=== PATIENT | female | born 1955 | race Two or more races ===

== ENCOUNTER 2018-10-04 07:49 | Outpatient (CLI) | payer OTHER | END 2018-10-04 08:01 | disposition home or self-care (01) | LOC: SONOGRAMA 07:49 | DX: B18.2 Chronic viral hepatitis C (principal); R10.84 Generalized abdominal pain ==

== ENCOUNTER 2018-10-23 10:21 | Outpatient (CLI) | payer OTHER | END 2018-10-23 17:00 | disposition home or self-care (01) | LOC: MAMO-SONO 10:21 | DX: Z12.31 Encounter for screening mammogram for malignant neoplasm of breast (principal); N60.11 Diffuse cystic mastopathy of right breast ==

== ENCOUNTER 2019-12-26 07:55 | Outpatient (CLI) | payer OTHER | END 2019-12-26 08:07 | disposition home or self-care (01) | LOC: SONOGRAMA 07:55 | DX: R10.84 Generalized abdominal pain (principal) ==

== ENCOUNTER 2020-01-21 09:02 | Outpatient (CLI) | payer OTHER | END 2020-01-21 09:18 | disposition home or self-care (01) | LOC: MAMO-SONO 09:02 | DX: Z12.31 Encounter for screening mammogram for malignant neoplasm of breast (principal); N60.11 Diffuse cystic mastopathy of right breast ==

== ENCOUNTER 2021-05-19 07:43 | Outpatient (CLI) | payer OTHER | END 2021-05-19 07:58 | disposition home or self-care (01) | LOC: MAMO-SONO 07:43 | PROVIDERS: ATTEND Obstetrics & Gynecology | DX: N60.11 Diffuse cystic mastopathy of right breast (principal) ==

== ENCOUNTER 2021-06-12 08:35 | Outpatient (CLI) | payer OTHER | END 2021-06-12 08:44 | disposition home or self-care (01) | LOC: SONOGRAMA 08:35 → MAMO-SONO 08:45 | PROVIDERS: ATTEND Internal Medicine Gastroenterology | DX: R10.84 Generalized abdominal pain (principal) ==

== ENCOUNTER 2022-06-22 07:53 | Outpatient (CLI) | payer OTHER | END 2022-06-22 08:02 | disposition home or self-care (01) | LOC: MAMO-SONO 07:53 | PROVIDERS: ATTEND Obstetrics & Gynecology | DX: Z12.31 Encounter for screening mammogram for malignant neoplasm of breast (principal); N60.11 Diffuse cystic mastopathy of right breast; R10.9 Unspecified abdominal pain ==